=== PATIENT | male | born 1950 | race African-American/Black ===

== ENCOUNTER 2018-09-26 15:04 | Emergency (ER) | payer MEDICARE ==
[~2018-09-26] VITALS: Ht 185.4 cm; Wt 100.0 kg
[2018-09-26] MEDS ORDERED: BACITRACIN ZINC OINT UDPKT TOP ONE (16:00)
[2018-09-26] MEDS ORDERED: LIDOCAINE 1%/EPI 1:100,000 10 ML VIAL IJ ONE (16:00)
[2018-09-26] MEDS ORDERED: IBUPROFEN 600MG TABLET PO ONE (16:00)
[2018-09-26] MEDS ORDERED: LIDOCAINE HCL/EPINEPHRINE 1%-EPI 1:100,000 20 ML VIAL INFIL NR (16:30)
[2018-09-26 17:45] VITALS: BP 162/84
== END 2018-09-26 17:48 | disposition home or self-care (01) ==
LOC: ER 15:04
DX: S01.111A Laceration without foreign body of right eyelid and periocular area, initial encounter (principal); S09.8XXA Other specified injuries of head, initial encounter; J44.9 Chronic obstructive pulmonary disease, unspecified; N40.0 Benign prostatic hyperplasia without lower urinary tract symptoms; Z98.890 Other specified postprocedural states; X58.XXXA Exposure to other specified factors, initial encounter; Y93.89 Activity, other specified; Y92.89 Other specified places as the place of occurrence of the external cause; Y99.8 Other external cause status
CPT/HCPCS: 12013; 70450; 99284; J3490